=== PATIENT | female | born 2000 | race African-American/Black ===

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

== ENCOUNTER 2024-02-09 05:11 | Emergency (ER) | payer OTHER ==
[~2024-02-09] VITALS: Ht 160 cm; Wt 84.1 kg
[2024-02-09 06:30] LABS: BASOPHILS % (AUTO) 0.3 % (0.0-2.0); EOSINOPHILS % (AUTO) 0 % (1.0-6.0); HEMATOCRIT 38.4 % (36-46); HEMOGLOBIN 12.5 g/dL (12.0-16.0); LYMPHOCYTES % (AUTO) 7.8 % (22.0-44.0); MEAN CORPUSCULAR HEMOGLOBIN 28.2 pg (26.0-34.0); MEAN CORPUSCULAR HGB CONC 32.4 G/dL (31.0-37.0); MEAN CORPUSCULAR VOLUME 87 fL (80-100); NEUTROPHILS # (AUTO) 10.7 K/uL (1.8-7.7); NEUTROPHILS % (AUTO) 83.9 % (40.0-70.0); PLATELET COUNT (AUTO) 195 K/uL (150-450); RED BLOOD CELL COUNT(AUTO) 4.42 MIL/uL (4.00-5.20); RED CELL DISTRIBUTION WIDTH 14.1 % (11.5-14.5); WHITE BLOOD COUNT (AUTO) 12.7 K/uL (4.5-11.0)
[2024-02-09 06:50] LABS: ANION GAP 19 mmol/L (8-16); CARBON DIOXIDE 18 mmol/L (22-29); CHLORIDE 103 mmol/L (98-107); CREATININE 1.04 mg/dL (0.60-1.30); GLOMERULAR FILTR. RATE CALC > 60 mL/min (>60); GLUCOSE,RANDOM 62 mg/dL (70-110); POTASSIUM 4.1 mmol/L (3.5-5.1); SODIUM SERUM 140 mmol/L (136-145); UREA NITROGEN, BLOOD 7 mg/dL (7-18)
[2024-02-09 06:57] LABS: ALANINE AMINOTRANSFERASE 30 U/L (12-78); ALBUMIN 3.9 g/dL (3.4-5.0); ALKALINE PHOSPHATASE 62 U/L (46-116); ASPARTATE AMINOTRANSFERASE 22 U/L (15-37); BILIRUBIN,TOTAL 0.3 mg/dL (0.1-1.0); TOTAL PROTEIN, SERUM 7.4 g/dL (6.4-8.2)
[2024-02-09] MEDS: HYDROCODONE/ACETAMINOPHEN 5-325 MG TABLET PO ONE (07:03)
[2024-02-09 07:16] LABS: HCG,QUANTITATIVE < 1 mIU/mL (0-6)
[2024-02-09 07:51] LABS: GLUCOMETER DEV NAME(LOC) ER.7; GLUCOSE,POINT OF CARE 87 MG/DL (70-110)
[2024-02-09 09:31] VITALS: TEMP 98.2
[2024-02-09] MEDS ORDERED: IBUP-1492 PO (09:40)
[2024-02-09 09:42] VITALS: BP 104/62; PULSE 99; RESP 16; O2SAT 100
[2024-02-09 10:01] LABS: GLUCOMETER DEV NAME(LOC) ER.7; GLUCOSE,POINT OF CARE 98 MG/DL (70-110)
== END 2024-02-09 10:04 | disposition home or self-care (01) ==
LOC: EMS 05:11
DX: S30.1XXA Contusion of abdominal wall, initial encounter (principal); S90.31XA Contusion of right foot, initial encounter; R10.31 Right lower quadrant pain; E16.2 Hypoglycemia, unspecified; F12.90 Cannabis use, unspecified, uncomplicated; W52.XXXA Crushed, pushed or stepped on by crowd or human stampede, initial encounter; Y93.89 Activity, other specified; Y92.89 Other specified places as the place of occurrence of the external cause; Y99.8 Other external cause status
CPT/HCPCS: 74176; 80048; 80076; 82962; 84702; 85025; 99284